=== PATIENT | male | born 1985 | race African-American/Black ===

== ENCOUNTER 2022-04-30 17:30 | Emergency (ER) | payer SELFPAY ==
[~2022-04-30] VITALS: Ht 180.3 cm; Wt 80.0 kg
[2022-05-01] MEDS ORDERED: CEPH500C2 MT (00:41)
[2022-05-01] MEDS ORDERED: IBUP-2029 MT (00:42)
[2022-05-01 00:52] VITALS: BP 101/54
== END 2022-05-01 00:55 | disposition home or self-care (01) ==
LOC: ER 17:45
DX: S60.551A Superficial foreign body of right hand, initial encounter (principal); X58.XXXA Exposure to other specified factors, initial encounter; Y93.89 Activity, other specified; Y92.89 Other specified places as the place of occurrence of the external cause; Y99.8 Other external cause status
CPT/HCPCS: 73130; 73200; 99284; Z7610